=== PATIENT | male | born 1970 | race African-American/Black ===

== ENCOUNTER 2016-10-01 17:15 | Emergency (ER) | payer OTHER ==
[~2016-10-01] VITALS: Ht 175.3 cm; Wt 107.4 kg
[~2016-10-01 17:15] MED LIST: BENZONATATE100 MG PO; BENZONATATE200 MG PO; CARVEDILOL12.5 MG PO; CARVEDILOL25 MG PO; CARVEDILOL6.25 MG PO; COREG25 M1 PO; COUMADIN2.5 MG PO; COUMADIN5 MG PO; FOLIC ACID1 MG PO; FUROSEMIDE20 MG PO; GUAIFENESIN WI120 M1 PO; K-DUR20 MEQ PO; KLOR-CON M1010 MEQ PO; LASIX20 MG PO; LEVAQUIN750 MG PO; LEVOFLOXACIN500 MG PO; LIBRIUM25 MG PO; LISINOPRIL10 MG PO; LISINOPRIL5 MG PO; LOVENOX80 MG/0.8 SC; NAPROSYN500 MG PO; NAPROXEN500 MG PO; NICOTINE PATCH1 EAC1 TD; ONE DAILY TABL1 EAC1 PO; PANTOPRAZOLE SO40 MG PO; PERCOCET 5/31 TABLET PO; POTASSIUM CHLO20 ME1 PO; PREDNISONE20 MG PO; PROAIR HFA8.5 GM IH; PROTONIX40 MG PO; PROVENTIL HFA6.7 GM IH; PROVENTIL,2.5 MG/0.5 AEROSOL; SPIRIVA RESPIMAT4 GM IH; SPIRIVA1 INHALATI IH; TESSALON PERLE100 MG PO; THERAGRAN1 TABLET PO; VENTOLIN HFA18 GM IH; VITAMIN B-1100 MG PO; VITAMIN B-6100 MG PO; ZESTRIL10 MG PO; ZITHROMAX Z-PA250 MG PO; ZOFRAN4 MG PO
[2016-10-01 17:52] LABS: HEMATOCRIT 44.5 % (38.0-50.0); MCH 28.7 PG (29.0-34.0); MCHC 34.8 G/DL (30.0-36.0); MCV 82.4 FL (86-99); MEAN PLAT.VOLUME 10.3 uM^3 (9.0-12.4); PLATELET COUNT 202 K/uL (156-360); RBC DIS.WIDTH-CV 14.2 % (11.8-14.6); RBC DIS.WIDTH-SD 42.3 % (39-53); WHITE BLOOD COUNT 7.5 K/uL (4.1-10.2)
[2016-10-01 18:07] LABS: CHLORIDE 104 mEq/L (99-109); POTASSIUM 3.7 mEq/L (3.7-5.4); SODIUM 139 mEq/L (136-147)
[2016-10-01 18:09] LABS: GLUCOSE 89 mg/dL (70-99)
[2016-10-01 18:10] LABS: ANION GAP 13 MEQ/L (2-14)
[2016-10-01 18:13] LABS: GFR ESTIMATE (CALCULATED) > 59 mL/min/; UREA NITROGEN (BUN) 13 mg/dL (9-23)
[2016-10-01 18:17] LABS: TROP-I INTERPRETATION NEGATIVE; TROPONIN-I 0.01 ng/mL (0.0-0.30)
[2016-10-01 20:21] LABS: TROP-I INTERPRETATION NEGATIVE; TROPONIN-I 0.01 ng/mL (0.0-0.30)
[2016-10-01 20:45] LABS: ADD MIUA? NO; BILIRUBIN NEGATIVE; BLOOD NEGATIVE; COLOR YELLOW ((YELLOW)); GLUCOSE (STRIP) NEGATIVE; KETONES NEGATIVE; LEUKOCYTES NEGATIVE; NITRITE NEGATIVE; PROTEIN (STRIP) NEGATIVE; SPECIFIC GRAVITY 1.023 (1.000-1.030); UCUL ADDED? NO; UROBILINOGEN 0.2 MG/DL (0.2-1.0)
[2016-10-01] MEDS ORDERED: ULTRAM50 MG PO (22:04)
[2016-10-01 22:21] VITALS: BP 148/89
== END 2016-10-01 22:49 | disposition home or self-care (01) ==
LOC: EME → EDBD 17:15 → EME 17:15
PROVIDERS: Emergency Medicine
DX: M79.1 Myalgia (principal); M25.579 Pain in unspecified ankle and joints of unspecified foot; J45.909 Unspecified asthma, uncomplicated; I50.9 Heart failure, unspecified; I25.2 Old myocardial infarction; Z86.718 Personal history of other venous thrombosis and embolism; Z87.891 Personal history of nicotine dependence
CPT/HCPCS: 71020; 80048; 81003; 84484; 85027; 93005; 99281; 99284

== ENCOUNTER 2016-12-22 12:24 | Observation (INO) | payer OTHER ==
[~2016-12-22] VITALS: Ht 175.3 cm; Wt 112.8 kg
[~2016-12-22 12:24] MED LIST changes: +ULTRAM50 MG PO
[2016-12-22 13:28] LABS: HEMATOCRIT 46.7 % (38.0-50.0); MCH 27.1 PG (29.0-34.0); MCHC 33.2 G/DL (30.0-36.0); MCV 81.5 FL (86-99); MEAN PLAT.VOLUME 10.6 uM^3 (9.0-12.4); PLATELET COUNT 266 K/uL (156-360); RBC DIS.WIDTH-CV 14.4 % (11.8-14.6); RBC DIS.WIDTH-SD 42.1 % (39-53); RED BLOOD COUNT 5.73 M/uL (4.00-5.50); WHITE BLOOD COUNT 7.2 K/uL (4.1-10.2)
[2016-12-22 13:36] LABS: CHLORIDE 99 mEq/L (99-109); POTASSIUM 5.2 mEq/L (3.7-5.4); SODIUM 136 mEq/L (136-147)
[2016-12-22 13:37] LABS: GLUCOSE 119 mg/dL (70-99)
[2016-12-22] MEDS ORDERED: XARELTO20 MG PO (13:38)
[2016-12-22] MEDS ORDERED: ALDACTONE25 MG PO (13:38)
[2016-12-22 13:39] LABS: ANION GAP 13 MEQ/L (2-14)
[2016-12-22] MEDS ORDERED: COREG25 M1 PO (13:39)
[2016-12-22 13:41] LABS: GFR ESTIMATE (CALCULATED) > 59 mL/min/
[2016-12-22 13:42] LABS: UREA NITROGEN (BUN) 21 mg/dL (9-23)
[2016-12-22 13:54] LABS: TROP-I INTERPRETATION NEGATIVE; TROPONIN-I 0.02 ng/mL (0.0-0.30)
[2016-12-22] MEDS ORDERED: ROXICODONE5 MG PO (14:54)
[2016-12-22] MEDS ORDERED: DAILY VITE1 EAC1 PO (14:55)
[2016-12-22 16:10] VITALS: BP 106/64
[2016-12-22 18:21] LABS: TROP-I INTERPRETATION NEGATIVE; TROPONIN-I 0.02 ng/mL (0.0-0.30)
[2016-12-22 19:00] VITALS: BP 107/69
[2016-12-22 23:19] VITALS: BP 102/64
[2016-12-23 01:18] LABS: TROP-I INTERPRETATION NEGATIVE; TROPONIN-I < 0.01 ng/mL (0.0-0.30)
[2016-12-23 04:24] VITALS: BP 105/69
[2016-12-23 09:23] VITALS: BP 121/73
[2016-12-23 11:53] VITALS: BP 109/71
[2016-12-23] MEDS ORDERED: ROXICODONE5 MG PO (12:17)
== END 2016-12-23 14:24 | disposition home or self-care (01) ==
LOC: EME 12:24 → EDOF 14:59 → 5WEST 14:59 → EDOF 14:59 → 5WEST 15:54
PROVIDERS: Emergency Medicine; Hospitalist
DX: R07.89 Other chest pain (principal); M25.512 Pain in left shoulder; I11.0 Hypertensive heart disease with heart failure; I50.22 Chronic systolic (congestive) heart failure; I42.9 Cardiomyopathy, unspecified; J45.909 Unspecified asthma, uncomplicated; Z95.810 Presence of automatic (implantable) cardiac defibrillator; Z86.718 Personal history of other venous thrombosis and embolism; Z79.01 Long term (current) use of anticoagulants; J44.9 Chronic obstructive pulmonary disease, unspecified
CPT/HCPCS: 71020; 73030; 80048; 83880; 84484; 85027; 93005; 93880; 99202; 99281; 99285; G0378; J1885; J2270

== ENCOUNTER 2017-03-27 03:41 | Observation (INO) | payer OTHER ==
[~2017-03-27] VITALS: Ht 175.3 cm; Wt 114.4 kg
[2017-03-27] VITALS (7 sets, daily range): BP systolic 119–158; BP diastolic 62–93
[~2017-03-27 03:41] MED LIST changes: +ALDACTONE25 MG PO; +DAILY VITE1 EAC1 PO; +ROXICODONE5 MG PO; +XARELTO20 MG PO
[2017-03-27 04:13] LABS: HEMATOCRIT 43.6 % (38.0-50.0); MCH 27.9 PG (29.0-34.0); MCHC 33.9 G/DL (30.0-36.0); MCV 82.1 FL (86-99); MEAN PLAT.VOLUME 9.9 uM^3 (9.0-12.4); PLATELET COUNT 231 K/uL (156-360); RBC DIS.WIDTH-CV 14.3 % (11.8-14.6); RBC DIS.WIDTH-SD 42.7 % (39-53); RED BLOOD COUNT 5.31 M/uL (4.00-5.50); WHITE BLOOD COUNT 7.2 K/uL (4.1-10.2)
[2017-03-27 04:26] LABS: CHLORIDE 104 mEq/L (99-109); POTASSIUM 4.1 mEq/L (3.7-5.4); SODIUM 140 mEq/L (136-147)
[2017-03-27 04:28] LABS: D-DIMER ELISA 0.48 mg/L FEU (< 0.57); GLUCOSE 254 mg/dL (70-99)
[2017-03-27 04:29] LABS: ANION GAP 15 MEQ/L (2-14)
[2017-03-27 04:32] LABS: GFR ESTIMATE (CALCULATED) > 59 mL/min/
[2017-03-27 04:33] LABS: UREA NITROGEN (BUN) 12 mg/dL (9-23)
[2017-03-27 04:36] LABS: TROP-I INTERPRETATION NEGATIVE; TROPONIN-I 0.01 ng/mL (0.0-0.30)
[2017-03-27 05:08] LABS: SERUM ETHYL ALCOHOL 40 mg/dL
[2017-03-27] MEDS ORDERED: COREG12.5 M1 PO (09:38)
[2017-03-27] MEDS ORDERED: ZESTRIL20 MG PO (09:38)
[2017-03-27] MEDS ORDERED: LASIX40 MG PO (09:39)
[2017-03-27] MEDS ORDERED: LIPITOR80 MG PO (09:40)
[2017-03-27 16:12] LABS: TROP-I INTERPRETATION NEGATIVE; TROPONIN-I 0.01 ng/mL (0.0-0.30)
[2017-03-27 18:06] LABS: ADD MIUA? NO; BILIRUBIN NEGATIVE; BLOOD NEGATIVE; COLOR STRAW ((YELLOW)); GLUCOSE (STRIP) >=500; KETONES NEGATIVE; LEUKOCYTES NEGATIVE; NITRITE NEGATIVE; PROTEIN (STRIP) NEGATIVE; SPECIFIC GRAVITY 1.024 (1.000-1.030); UCUL ADDED? NO; UROBILINOGEN 0.2 MG/DL (0.2-1.0)
[2017-03-27 18:20] LABS: ADD MEDTOX COMMENT Y; AMPHETAMINE NEGATIVE (500 ng/mL); BARBITURATES NEGATIVE (200 ng/mL); BENZODIAZEPINES NEGATIVE (150 ng/mL); COCAINE NEGATIVE (150 ng/mL); INTERNAL CONTROLS VALID? YES; METHADONE NEGATIVE (200 ng/mL); METHAMPHETAMINE NEGATIVE (500 ng/mL); OPIATES (MORPHINE) PRESUMPTIVE POSITIVE (100 ng/mL); OXYCODONE NEGATIVE (100 ng/mL); PHENCYCLIDINE NEGATIVE (25 ng/mL); PROPOXYPHENE NEGATIVE (300 ng/mL); THC CANNABINOIDS NEGATIVE (50 ng/mL); TRICYCLIC ANTIDEPRESSANTS NEGATIVE (300 ng/mL)
[2017-03-28] VITALS: BP 132/86
[2017-03-28 03:56] VITALS: BP 141/93
[2017-03-28] MEDS ORDERED: AZITHROMYCIN500 M1 PO (09:02)
[2017-03-28 09:15] VITALS: BP 127/82
== END 2017-03-28 11:07 | disposition home or self-care (01) ==
LOC: EME → EDBD 03:41 → EDOF 04:57 → 5WEST 06:01
PROVIDERS: Emergency Medicine; Physician Assistant Medical
DX: J44.0 Chronic obstructive pulmonary disease with (acute) lower respiratory infection (principal); J20.9 Acute bronchitis, unspecified; R00.0 Tachycardia, unspecified; I42.0 Dilated cardiomyopathy; R07.89 Other chest pain; F10.20 Alcohol dependence, uncomplicated; Z95.810 Presence of automatic (implantable) cardiac defibrillator; I12.9 Hypertensive chronic kidney disease with stage 1 through stage 4 chronic kidney disease, or unspecified chronic kidney disease; N18.3 Chronic kidney disease, stage 3 (moderate); I25.2 Old myocardial infarction; E66.9 Obesity, unspecified; Z68.37 Body mass index [BMI] 37.0-37.9, adult; F17.210 Nicotine dependence, cigarettes, uncomplicated; Z98.890 Other specified postprocedural states; Z91.010 Allergy to peanuts; Z88.5 Allergy status to narcotic agent; Z88.6 Allergy status to analgesic agent; Z79.01 Long term (current) use of anticoagulants
CPT/HCPCS: 71020; 71275; 80048; 81003; 83880; 84443; 84484; 84999; 85027; 85379; 93005; 94640; 94640 76; 94760; 99202; 99281; 99285; G0378; G0480; J1650; J2270; J2405; J7030; J7512

== ENCOUNTER 2017-04-28 21:07 | Inpatient (IN) | payer OTHER ==
[~2017-04-28] VITALS: Ht 175.3 cm; Wt 72.2 kg
[~2017-04-28 21:07] MED LIST changes: +AZITHROMYCIN500 M1 PO; +COREG12.5 M1 PO; +LASIX40 MG PO; +LIPITOR80 MG PO; +ZESTRIL20 MG PO
[2017-04-28 21:35] LABS: HEMATOCRIT 43.3 % (38.0-50.0); MCH 27.6 PG (29.0-34.0); MCHC 34.4 G/DL (30.0-36.0); MCV 80.2 FL (86-99); MEAN PLAT.VOLUME 11.8 uM^3 (9.0-12.4); PLATELET COUNT 217 K/uL (156-360); RBC DIS.WIDTH-SD 37.2 % (39-53); WHITE BLOOD COUNT 7.5 K/uL (4.1-10.2)
[2017-04-28 21:50] LABS: CHLORIDE 89 mEq/L (99-109); POTASSIUM 4.8 mEq/L (3.7-5.4); SODIUM 122 mEq/L (136-147)
[2017-04-28 21:54] LABS: ANION GAP 15 MEQ/L (2-14)
[2017-04-28 21:56] LABS: GFR ESTIMATE (CALCULATED) 53 mL/min/
[2017-04-28 21:57] LABS: UREA NITROGEN (BUN) 21 mg/dL (9-23)
[2017-04-28 22:00] LABS: GLUCOSE 754 mg/dL (70-99)
[2017-04-28 22:28] LABS: ADD MIUA? NO; BILIRUBIN NEGATIVE; BLOOD NEGATIVE; COLOR STRAW ((YELLOW)); GLUCOSE (STRIP) >=500; KETONES 20; LEUKOCYTES NEGATIVE; NITRITE NEGATIVE; PROTEIN (STRIP) NEGATIVE; UCUL ADDED? NO; UROBILINOGEN 0.2 MG/DL (0.2-1.0)
[2017-04-28 22:49] LABS: BASE EXCESS -4.9 mEq/L (-3 to +3); BICARBONATE 19.8 mEq/L (22-26); METHEMOGLOBIN 0.8 % (0-1.5); PCO2 35 mm Hg (35-45); PO2 71 mm Hg (80-100); pH 7.36 (7.35-7.45)
[2017-04-28 22:50] LABS: COMMENTS - BLOOD GASES A+C+; FI02 21 %; SITE RR
[2017-04-28 23:09] LABS: DIRECT BILIRUBIN 0.1 mg/dL (0.0-0.3); MAGNESIUM 2.2 mg/dl (1.3-2.7); SAMPLE HEMOLYSIS CHECK 1; SAMPLE ICTERIC CHECK 0; SAMPLE LIPEMIA CHECK 1; TOTAL BILIRUBIN 0.5 MG/DL (0.0-1.0)
[2017-04-28 23:23] LABS: ALKALINE PHOSPHATASE 101 IU/L (3-129); LIPASE 63 U/L (1.0-51.0)
[2017-04-29 00:55] LABS: POTASSIUM ND MEQ/L (3.7-5.4)
[2017-04-29 01:00] LABS: CHLORIDE 96 mEq/L (99-109); SODIUM 126 mEq/L (136-147)
[2017-04-29 01:03] LABS: ANION GAP 12 MEQ/L (2-14)
[2017-04-29 01:06] LABS: GFR ESTIMATE (CALCULATED) > 59 mL/min/
[2017-04-29 01:07] LABS: UREA NITROGEN (BUN) 19 mg/dL (9-23)
[2017-04-29 01:12] LABS: GLUCOSE 564 mg/dL (70-99)
[2017-04-29 01:42] LABS: POTASSIUM 4.3 mEq/L (3.7-5.4)
[2017-04-29 04:38] LABS: CHLORIDE 99 mEq/L (99-109); POTASSIUM 4.3 mEq/L (3.7-5.4); SODIUM 130 mEq/L (136-147)
[2017-04-29 04:40] LABS: GLUCOSE 396 mg/dL (70-99)
[2017-04-29 04:42] LABS: ANION GAP 13 MEQ/L (2-14)
[2017-04-29 04:44] LABS: GFR ESTIMATE (CALCULATED) > 59 mL/min/
[2017-04-29 04:45] LABS: UREA NITROGEN (BUN) 16 mg/dL (9-23)
[2017-04-29 06:24] VITALS: BP 135/78
[2017-04-29 06:57] LABS: Estimated Average Glucose 381 mg/dL (70-123); HEMOGLOBIN A1c (GLYCOHEMOGLOB) 14.9 % HGB (Below 5.7)
[2017-04-29 07:52] VITALS: BP 117/59
[2017-04-29 10:07] LABS: ANION GAP 10 MEQ/L (2-14); CHLORIDE 95 MEQ/L (99-109); MAGNESIUM 1.9 mg/dl (1.3-2.7); POTASSIUM 4.1 MEQ/L (3.7-5.4); SAMPLE HEMOLYSIS CHECK 0; SAMPLE ICTERIC CHECK 0; SAMPLE LIPEMIA CHECK 0; SODIUM 129 MEQ/L (136-147)
[2017-04-29 10:20] LABS: GFR ESTIMATE (CALCULATED) > 59 mL/min/; LIPASE 57 U/L (1.0-51.0); UREA NITROGEN (BUN) 15 mg/dL (9-23)
[2017-04-29 10:25] LABS: GLUCOSE 517 mg/dL (70-99)
[2017-04-29 10:27] LABS: TROP-I INTERPRETATION NEGATIVE; TROPONIN-I < 0.01 ng/mL (0.0-0.30)
[2017-04-29 12:36] LABS: ANION GAP 9 MEQ/L (2-14); CHLORIDE 100 MEQ/L (99-109); MAGNESIUM 1.9 mg/dl (1.3-2.7); POTASSIUM 4.1 MEQ/L (3.7-5.4); SAMPLE HEMOLYSIS CHECK 0; SAMPLE ICTERIC CHECK 0; SAMPLE LIPEMIA CHECK 0; SODIUM 131 MEQ/L (136-147)
[2017-04-29 12:41] LABS: GFR ESTIMATE (CALCULATED) > 59 mL/min/; GLUCOSE 369 mg/dL (70-99); UREA NITROGEN (BUN) 14 mg/dL (9-23)
[2017-04-29 15:30] VITALS: BP 95/58
[2017-04-29 15:33] VITALS: BP 149/88
[2017-04-29 16:33] LABS: ANION GAP 7 MEQ/L (2-14); CHLORIDE 99 MEQ/L (99-109); GFR ESTIMATE (CALCULATED) > 59 mL/min/; GLUCOSE 337 mg/dL (70-99); MAGNESIUM 1.9 mg/dl (1.3-2.7); POTASSIUM 3.9 MEQ/L (3.7-5.4); SAMPLE HEMOLYSIS CHECK 0; SAMPLE ICTERIC CHECK 0; SAMPLE LIPEMIA CHECK 0; SODIUM 128 MEQ/L (136-147); UREA NITROGEN (BUN) 13 mg/dL (9-23)
[2017-04-29 16:36] LABS: TROP-I INTERPRETATION NEGATIVE; TROPONIN-I 0.02 ng/mL (0.0-0.30)
[2017-04-29 21:19] LABS: TROP-I INTERPRETATION NEGATIVE; TROPONIN-I 0.01 ng/mL (0.0-0.30)
[2017-04-29 21:41] LABS: ANION GAP 10 MEQ/L (2-14); CHLORIDE 101 MEQ/L (99-109); MAGNESIUM 1.8 mg/dl (1.3-2.7); SAMPLE HEMOLYSIS CHECK 0; SAMPLE ICTERIC CHECK 0; SAMPLE LIPEMIA CHECK 0; SODIUM 131 MEQ/L (136-147)
[2017-04-29 22:02] LABS: GFR ESTIMATE (CALCULATED) > 59 mL/min/; UREA NITROGEN (BUN) 13 mg/dL (9-23)
[2017-04-29 22:03] LABS: GLUCOSE 399 mg/dL (70-99)
[2017-04-29 23:58] VITALS: BP 106/59
[2017-04-30 02:19] LABS: POINT-OF-CARE METER ID UU13113725
[2017-04-30 04:00] LABS: POINT-OF-CARE METER ID UU13113725
[2017-04-30 06:28] LABS: POINT-OF-CARE METER ID UU13113725
[2017-04-30 06:29] LABS: EOSINOPHIL (%) 1.5 % (0-5); EOSINOPHIL COUNT 0.1 K/uL (0-0.3); HEMATOCRIT 39.1 % (38.0-50.0); IMMATURE GRANULOCYTE (%) 0.4 % (0.0-0.7); INSTRUMENT ABS NEUTROPHIL CT 2.4 K/uL; MCH 27.8 PG (29.0-34.0); MCHC 34.3 G/DL (30.0-36.0); MCV 81.1 FL (86-99); MEAN PLAT.VOLUME 11.4 uM^3 (9.0-12.4); MONOCYTE (%) 6.3 % (3-12); MONOCYTE COUNT 0.3 K/uL (0-0.8); NEUTROPHIL COUNT 2.4 K/uL (1.8-6.4); PLATELET COUNT 156 K/uL (156-360); RBC DIS.WIDTH-CV 13.1 % (11.8-14.6); RBC DIS.WIDTH-SD 38.2 % (39-53); RED BLOOD COUNT 4.82 M/uL (4.00-5.50); WHITE BLOOD COUNT 4.7 K/uL (4.1-10.2)
[2017-04-30 07:12] LABS: ANION GAP 11 MEQ/L (2-14); CHLORIDE 103 MEQ/L (99-109); GFR ESTIMATE (CALCULATED) > 59 mL/min/; GLUCOSE 209 mg/dL (70-99); POTASSIUM 3.7 MEQ/L (3.7-5.4); SAMPLE HEMOLYSIS CHECK 0; SAMPLE ICTERIC CHECK 0; SAMPLE LIPEMIA CHECK 0; SODIUM 135 MEQ/L (136-147); TOTAL BILIRUBIN 0.6 MG/DL (0.0-1.0); UREA NITROGEN (BUN) 10 mg/dL (9-23)
[2017-04-30 07:16] LABS: ALKALINE PHOSPHATASE 64 IU/L (3-129)
[2017-04-30 08:07] VITALS: BP 115/59
[2017-04-30 11:56] VITALS: BP 120/70
[2017-04-30 14:06] LABS: POINT-OF-CARE METER ID UU13113725
[2017-04-30 14:06] LABS: POINT-OF-CARE METER ID UU13113702
[2017-04-30 14:06] LABS: POINT-OF-CARE METER ID UU13113702
[2017-04-30 14:06] LABS: POINT-OF-CARE METER ID UU13113702
[2017-04-30 14:20] LABS: POINT-OF-CARE METER ID UU13113702
[2017-04-30 15:08] LABS: POINT-OF-CARE METER ID UU13113725
[2017-04-30 15:51] VITALS: BP 137/96
[2017-05-01 00:02] VITALS: BP 123/75
[2017-05-01 00:27] LABS: POINT-OF-CARE METER ID UU13113725
[2017-05-01 06:32] LABS: EOSINOPHIL (%) 1.6 % (0-5); EOSINOPHIL COUNT 0.1 K/uL (0-0.3); HEMATOCRIT 38.8 % (38.0-50.0); IMMATURE GRANULOCYTE (%) 0.5 % (0.0-0.7); INSTRUMENT ABS NEUTROPHIL CT 2.2 K/uL; LYMPHOCYTE COUNT 1.7 K/uL (1.0-2.8); MCH 27.5 PG (29.0-34.0); MCV 80.8 FL (86-99); MEAN PLAT.VOLUME 11.6 uM^3 (9.0-12.4); MONOCYTE (%) 5.9 % (3-12); MONOCYTE COUNT 0.3 K/uL (0-0.8); NEUTROPHIL (%) 50.9 % (45-76); NEUTROPHIL COUNT 2.2 K/uL (1.8-6.4); NRBC (%) 0.7 /100 WBC (0-0); PLATELET COUNT 169 K/uL (156-360); RBC DIS.WIDTH-CV 13.1 % (11.8-14.6); RBC DIS.WIDTH-SD 38.5 % (39-53); WHITE BLOOD COUNT 4.3 K/uL (4.1-10.2)
[2017-05-01 06:58] LABS: ALKALINE PHOSPHATASE 64 IU/L (3-129); ANION GAP 6 MEQ/L (2-14); CHLORIDE 103 MEQ/L (99-109); GFR ESTIMATE (CALCULATED) > 59 mL/min/; GLUCOSE 249 mg/dL (70-99); SAMPLE HEMOLYSIS CHECK 0; SAMPLE ICTERIC CHECK 0; SAMPLE LIPEMIA CHECK 0; SODIUM 133 MEQ/L (136-147); TOTAL BILIRUBIN 0.5 MG/DL (0.0-1.0); UREA NITROGEN (BUN) 7 mg/dL (9-23)
[2017-05-01 07:51] VITALS: BP 158/97
[2017-05-01 11:20] LABS: POINT-OF-CARE METER ID UU13113725
[2017-05-01 11:59] VITALS: BP 138/72
[2017-05-01 16:19] VITALS: BP 119/74
[2017-05-01 21:09] LABS: POINT-OF-CARE METER ID UU13113725
[2017-05-01 22:37] VITALS: BP 123/68
[2017-05-02 06:24] LABS: EOSINOPHIL (%) 1.4 % (0-5); EOSINOPHIL COUNT 0.1 K/uL (0-0.3); IMMATURE GRANULOCYTE (%) 0.5 % (0.0-0.7); INSTRUMENT ABS NEUTROPHIL CT 2.2 K/uL; LYMPHOCYTE COUNT 1.8 K/uL (1.0-2.8); MCH 28.3 PG (29.0-34.0); MCHC 34.5 G/DL (30.0-36.0); MCV 82.1 FL (86-99); MEAN PLAT.VOLUME 11.4 uM^3 (9.0-12.4); MONOCYTE (%) 7.6 % (3-12); MONOCYTE COUNT 0.3 K/uL (0-0.8); NEUTROPHIL (%) 49.6 % (45-76); NEUTROPHIL COUNT 2.2 K/uL (1.8-6.4); PLATELET COUNT 149 K/uL (156-360); RBC DIS.WIDTH-CV 13.3 % (11.8-14.6); RBC DIS.WIDTH-SD 39.7 % (39-53); RED BLOOD COUNT 4.63 M/uL (4.00-5.50); WHITE BLOOD COUNT 4.4 K/uL (4.1-10.2)
[2017-05-02 06:55] LABS: ANION GAP 7 MEQ/L (2-14); CHLORIDE 107 MEQ/L (99-109); GFR ESTIMATE (CALCULATED) > 59 mL/min/; GLUCOSE 202 mg/dL (70-99); POTASSIUM 3.9 MEQ/L (3.7-5.4); SAMPLE HEMOLYSIS CHECK 0; SAMPLE ICTERIC CHECK 0; SAMPLE LIPEMIA CHECK 0; SODIUM 136 MEQ/L (136-147); UREA NITROGEN (BUN) 7 mg/dL (9-23)
[2017-05-02 07:15] VITALS: BP 126/71
[2017-05-02] MEDS ORDERED: FOLIC ACID1 MG PO (08:55)
[2017-05-02] MEDS ORDERED: ADVAIR HFA120 INHALA IH (08:55)
[2017-05-02] MEDS ORDERED: SPIRIVA RESPIMAT4 GM IH (08:55)
[2017-05-02] MEDS ORDERED: NOVOLOG PE100 UNITS/ SC (08:55)
[2017-05-02] MEDS ORDERED: Thiamine,Vitamin B1 PO (08:55)
[2017-05-02] MEDS ORDERED: LEVEMIR100 UNIT/2 SC (08:55)
[2017-05-02] MEDS ORDERED: MAG-AL PLUS SUS30 ML PO (08:59)
== END 2017-05-02 13:06 | disposition home or self-care (01) | DRG 638 ==
LOC: EME 21:07 → 5EAST 04-29 03:22 → EDOF 04-29 03:22 → ENRESERV 04-29 03:23 → 5EAST 04-29 05:30
PROVIDERS: Emergency Medicine; Hospitalist; Physician Assistant
DX: E13.10 Other specified diabetes mellitus with ketoacidosis without coma (principal); N17.9 Acute kidney failure, unspecified; I13.0 Hypertensive heart and chronic kidney disease with heart failure and stage 1 through stage 4 chronic kidney disease, or unspecified chronic kidney disease; I42.6 Alcoholic cardiomyopathy; I95.9 Hypotension, unspecified; N18.3 Chronic kidney disease, stage 3 (moderate); I50.22 Chronic systolic (congestive) heart failure; Z86.74 Personal history of sudden cardiac arrest; E87.1 Hypo-osmolality and hyponatremia; R07.89 Other chest pain; E78.5 Hyperlipidemia, unspecified; E03.9 Hypothyroidism, unspecified; J44.9 Chronic obstructive pulmonary disease, unspecified; F10.21 Alcohol dependence, in remission; R74.8 Abnormal levels of other serum enzymes; K76.0 Fatty (change of) liver, not elsewhere classified; E66.9 Obesity, unspecified; Z68.35 Body mass index [BMI] 35.0-35.9, adult; Z79.899 Other long term (current) drug therapy; Z87.891 Personal history of nicotine dependence; Z80.0 Family history of malignant neoplasm of digestive organs; Z95.810 Presence of automatic (implantable) cardiac defibrillator; E86.0 Dehydration; K52.9 Noninfective gastroenteritis and colitis, unspecified; E11.22 Type 2 diabetes mellitus with diabetic chronic kidney disease; I25.2 Old myocardial infarction
CPT/HCPCS: 36600; 71020; 74176; 80048; 80048 91; 80053; 80076; 81003; 82010; 82803; 82948; 83036; 83690; 83735; 83880; 84100; 84484; 84999; 85025; 85027; 85379; 93005; 94640; 94640 76; 94760; 99202; 99281; 99285; J1650; J1815; J2270; J2765; J7030; J7050; J7120

== ENCOUNTER 2017-09-02 13:52 | Observation (INO) | payer OTHER ==
[~2017-09-02] VITALS: Ht 175.3 cm; Wt 102.7 kg
[~2017-09-02 13:52] MED LIST changes: +ADVAIR HFA120 INHALA IH; +LEVEMIR100 UNIT/2 SC; +MAG-AL PLUS SUS30 ML PO; +NOVOLOG PE100 UNITS/ SC; +Thiamine,Vitamin B1 PO
[2017-09-02 14:40] LABS: HEMATOCRIT 44.5 % (38.0-50.0); MCH 28.9 PG (29.0-34.0); MCHC 35.7 G/DL (30.0-36.0); MCV 80.8 FL (86-99); MEAN PLAT.VOLUME 10.7 uM^3 (9.0-12.4); PLATELET COUNT 223 K/uL (156-360); RBC DIS.WIDTH-CV 13.2 % (11.8-14.6); RBC DIS.WIDTH-SD 38.4 % (39-53); RED BLOOD COUNT 5.51 M/uL (4.00-5.50)
[2017-09-02 14:44] LABS: ADD MIUA? YES; BILIRUBIN NEGATIVE; BLOOD SMALL; COLOR STRAW ((YELLOW)); GLUCOSE (STRIP) >=500; KETONES 5; LEUKOCYTES NEGATIVE; NITRITE NEGATIVE; PROTEIN (STRIP) NEGATIVE; SPECIFIC GRAVITY 1.027 (1.000-1.030); UROBILINOGEN 0.2 MG/DL (0.2-1.0)
[2017-09-02 14:47] LABS: BACTERIA NONE SEEN /HPF; EPITHELIAL CELLS NONE SEEN /HPF; MUCUS NONE SEEN /LPF; RED BLOOD CELLS 0-5 /HPF (0-5); UCUL ADDED? NO; WHITE BLOOD CELLS NONE SEEN /HPF (0-5)
[2017-09-02 14:56] LABS: CHLORIDE 86 mEq/L (99-109); POTASSIUM 4.7 mEq/L (3.7-5.4); SODIUM 120 mEq/L (136-147)
[2017-09-02 14:57] LABS: MAGNESIUM 2.3 mg/dL (1.3-2.7)
[2017-09-02 15:00] LABS: ANION GAP 16 MEQ/L (2-14); TOTAL BILIRUBIN 0.6 mg/dL (0.0-1.0)
[2017-09-02 15:01] LABS: SERUM ETHYL ALCOHOL < 10 mg/dL
[2017-09-02 15:02] LABS: ALKALINE PHOSPHATASE 142 IU/L (3-129); GFR ESTIMATE (CALCULATED) > 59 mL/min/ (58.99-99999)
[2017-09-02 15:03] LABS: TROP-I INTERPRETATION NEGATIVE; TROPONIN-I < 0.01 ng/mL (0.0-0.30); UREA NITROGEN (BUN) 16 mg/dL (9-23)
[2017-09-02 15:04] LABS: GLUCOSE 860 mg/dL (70-99)
[2017-09-02 15:33] LABS: ABS NEUTROPHIL COUNT 3.3; ANISOCYTOSIS 1+; ATYPICAL LYMPHOCYTE 16.5 %; EOSINOPHIL ABS CT 0.2; EOSINOPHILS 2.9 % (0-5.0); INSTRUMENT ABS NEUTROPHIL CT 2.5 K/uL; LYMPHOCYTES 16.5 % (15.0-45.0); MICROCYTOSIS 1+; PLAT.SUFFICIENCY ADEQUATE; POIKILOCYTOSIS 2+; SEG.NEUTROPHILS 55.3 % (46.0-76.0); SMUDGE CELLS 22.3; SPHEROCYTES 2+
[2017-09-02] MEDS ORDERED: TUMS500 MG PO (17:51)
[2017-09-02 20:42] LABS: TROP-I INTERPRETATION NEGATIVE; TROPONIN-I < 0.01 ng/mL (0.0-0.30)
[2017-09-02 20:44] VITALS: BP 142/101
[2017-09-02 20:49] LABS: Estimated Average Glucose 404 mg/dL (70-123)
[2017-09-02 21:15] LABS: HEMOGLOBIN A1c (GLYCOHEMOGLOB) 15.7 % HGB (Below 5.7)
[2017-09-03 02:12] LABS: TROP-I INTERPRETATION NEGATIVE; TROPONIN-I < 0.01 ng/mL (0.0-0.30)
[2017-09-03 04:02] VITALS: BP 131/77
[2017-09-03 04:14] LABS: POINT-OF-CARE METER ID UU14302475
[2017-09-03 05:22] LABS: HEMATOCRIT 41.5 % (38.0-50.0); MCH 27.3 PG (29.0-34.0); MCHC 33.7 G/DL (30.0-36.0); MCV 80.9 FL (86-99); MEAN PLAT.VOLUME 10.1 uM^3 (9.0-12.4); PLATELET COUNT 187 K/uL (156-360); RBC DIS.WIDTH-CV 13.2 % (11.8-14.6); RBC DIS.WIDTH-SD 38.4 % (39-53); RED BLOOD COUNT 5.13 M/uL (4.00-5.50); WHITE BLOOD COUNT 5.7 K/uL (4.1-10.2)
[2017-09-03 05:44] LABS: ALKALINE PHOSPHATASE 94 IU/L (3-129); ANION GAP 10 MEQ/L (2-14); CHLORIDE 96 MEQ/L (99-109); POTASSIUM 4.2 MEQ/L (3.7-5.4); SAMPLE HEMOLYSIS CHECK 0; SAMPLE ICTERIC CHECK 0; SAMPLE LIPEMIA CHECK 0; TOTAL BILIRUBIN 0.4 MG/DL (0.0-1.0); UREA NITROGEN (BUN) 12 mg/dL (9-23)
[2017-09-03 05:45] LABS: GFR ESTIMATE (CALCULATED) > 59 mL/min/ (58.99-99999); GLUCOSE 305 mg/dL (70-99); SODIUM 129 MEQ/L (136-147)
[2017-09-03 08:04] LABS: POINT-OF-CARE METER ID UU13113831
[2017-09-03 08:19] VITALS: BP 129/82
[2017-09-03 11:19] VITALS: BP 114/60
[2017-09-03 12:23] LABS: POINT-OF-CARE METER ID UU14302475
[2017-09-03 16:02] VITALS: BP 128/84
[2017-09-03 16:41] LABS: POINT-OF-CARE METER ID UU14162513
[2017-09-03 18:02] LABS: POINT-OF-CARE METER ID UU14302475
[2017-09-03 22:19] VITALS: BP 114/71
[2017-09-03 23:48] VITALS: BP 108/63
[2017-09-04 03:12] LABS: POINT-OF-CARE METER ID UU14302475
[2017-09-04 04:54] VITALS: BP 128/78
[2017-09-04 05:25] LABS: HEMATOCRIT 42.3 % (38.0-50.0); MCH 27.7 PG (29.0-34.0); MCHC 33.6 G/DL (30.0-36.0); MCV 82.5 FL (86-99); MEAN PLAT.VOLUME 10.5 uM^3 (9.0-12.4); PLATELET COUNT 156 K/uL (156-360); RBC DIS.WIDTH-CV 13.2 % (11.8-14.6); RED BLOOD COUNT 5.13 M/uL (4.00-5.50); WHITE BLOOD COUNT 5.3 K/uL (4.1-10.2)
[2017-09-04 06:12] LABS: ANION GAP 12 MEQ/L (2-14); CHLORIDE 99 MEQ/L (99-109); GFR ESTIMATE (CALCULATED) > 59 mL/min/ (58.99-99999); GLUCOSE 295 mg/dL (70-99); POTASSIUM 4.1 MEQ/L (3.7-5.4); SAMPLE HEMOLYSIS CHECK 0; SAMPLE ICTERIC CHECK 0; SAMPLE LIPEMIA CHECK 0; SODIUM 131 MEQ/L (136-147); UREA NITROGEN (BUN) 12 mg/dL (9-23)
[2017-09-04 06:38] LABS: EOSINOPHIL (%) 1.7 % (0-5); EOSINOPHIL COUNT 0.1 K/uL (0-0.3); IMMATURE GRANULOCYTE (%) 0.2 % (0.0-0.7); INSTRUMENT ABS NEUTROPHIL CT 2.3 K/uL; LYMPHOCYTE COUNT 2.5 K/uL (1.0-2.8); MONOCYTE (%) 8.3 % (3-12); MONOCYTE COUNT 0.4 K/uL (0-0.8); NEUTROPHIL (%) 42.5 % (45-76); NEUTROPHIL COUNT 2.3 K/uL (1.8-6.4)
[2017-09-04 07:53] LABS: POINT-OF-CARE METER ID UU14162513
[2017-09-04 08:28] VITALS: BP 114/68
[2017-09-04] MEDS ORDERED: LISINOPRIL10 MG PO (08:39)
[2017-09-04] MEDS ORDERED: LEVEMIR100 UNIT/2 SC (08:40)
[2017-09-07 12:16] LABS: POINT-OF-CARE METER ID UU14302475
[2017-09-07 12:25] LABS: POINT-OF-CARE METER ID UU13113778
[2017-09-07 12:25] LABS: POINT-OF-CARE METER ID UU13113747
[2017-09-07 12:25] LABS: POINT-OF-CARE METER ID UU13113747
[2017-09-07 12:25] LABS: POINT-OF-CARE METER ID UU13113747
[2017-09-07 12:25] LABS: POINT-OF-CARE METER ID UU13113747
[2017-09-07 12:25] LABS: POINT-OF-CARE METER ID UU14302475
== END 2017-09-04 10:52 | disposition home or self-care (01) ==
LOC: EME 13:52 → EDOF 19:05 → 5WEST 19:05 → ENRESERV 19:07 → 5WEST 20:40 → ENPENDDIS 09-04 08:45 → 5WEST 09-04 10:52
PROVIDERS: Emergency Medicine; Internal Medicine
DX: E11.65 Type 2 diabetes mellitus with hyperglycemia (principal); N17.9 Acute kidney failure, unspecified; E87.1 Hypo-osmolality and hyponatremia; Z91.19 Patient's noncompliance with other medical treatment and regimen; J44.9 Chronic obstructive pulmonary disease, unspecified; I42.0 Dilated cardiomyopathy; R53.81 Other malaise; R50.9 Fever, unspecified; Z79.4 Long term (current) use of insulin; Z86.74 Personal history of sudden cardiac arrest; Z95.810 Presence of automatic (implantable) cardiac defibrillator; Z87.891 Personal history of nicotine dependence; F10.11 Alcohol abuse, in remission; Z86.718 Personal history of other venous thrombosis and embolism; N18.3 Chronic kidney disease, stage 3 (moderate); E78.5 Hyperlipidemia, unspecified; Z80.0 Family history of malignant neoplasm of digestive organs
CPT/HCPCS: 71010; 80048; 80053; 81003; 82010; 82948; 83036; 83605; 83735; 84484; 85025; 85027; 87502; 87651 90; 93005; 94640; 94640 76; 99202; 99281; 99285; G0378; G0480; J1644; J1815; J2405; J7030

== ENCOUNTER 2018-02-08 21:07 | Emergency (ER) | payer OTHER ==
[~2018-02-08] VITALS: Ht 175.3 cm; Wt 110.1 kg
[~2018-02-08 21:07] MED LIST changes: +TUMS500 MG PO
[2018-02-08 22:00] LABS: CARBON DIOXIDE (BICARBONATE) 21.8 MEQ/L (20-31)
[2018-02-08 22:10] LABS: INTER. NORMALIZED RATIO 1.1
[2018-02-08 22:13] LABS: PTT 23.1 SEC (25-37)
[2018-02-08 22:14] LABS: HEMOGLOBIN 16.4 G/DL (12.5-16.6); MCH 28.7 PG (29.0-34.0); MCHC 36.4 G/DL (30.0-36.0); MCV 78.7 FL (86-99); RBC DIS.WIDTH-CV 13.6 % (11.8-14.6); RBC DIS.WIDTH-SD 38.5 % (39-53); RED BLOOD COUNT 5.72 M/uL (4.00-5.50)
[2018-02-08 22:29] LABS: PLAT.SUFFICIENCY ADEQUATE; PLATELET COUNT 214 K/uL (156-360)
[2018-02-08 22:42] LABS: CHLORIDE 94 MEQ/L (99-109); CREATININE 1.2 MG/DL (0.6-1.3); GFR ESTIMATE (CALCULATED) > 59 mL/min/ (58.99-99999); POTASSIUM 3.7 MEQ/L (3.7-5.4); SODIUM 128 MEQ/L (136-147); UREA NITROGEN (BUN) 20 mg/dL (9-23)
[2018-02-08 22:43] LABS: GLUCOSE 507 mg/dL (70-99)
[2018-02-08 22:53] LABS: TROP-I INTERPRETATION NEGATIVE; TROPONIN-I < 0.01 ng/mL (0.0-0.30)
[2018-02-09 03:03] LABS: TROP-I INTERPRETATION NEGATIVE; TROPONIN-I < 0.01 ng/mL (0.0-0.30)
[2018-02-09 03:44] VITALS: BP 136/88
== END 2018-02-09 03:47 | disposition home or self-care (01) ==
LOC: EME 21:07
PROVIDERS: Emergency Medicine
DX: R07.89 Other chest pain (principal); J44.9 Chronic obstructive pulmonary disease, unspecified; I11.0 Hypertensive heart disease with heart failure; I50.9 Heart failure, unspecified; E11.9 Type 2 diabetes mellitus without complications; F41.9 Anxiety disorder, unspecified; I25.2 Old myocardial infarction; Z95.810 Presence of automatic (implantable) cardiac defibrillator; Z86.718 Personal history of other venous thrombosis and embolism; Z87.891 Personal history of nicotine dependence; Z88.6 Allergy status to analgesic agent; Z88.5 Allergy status to narcotic agent
CPT/HCPCS: 71046; 71275; 74177; 80048; 82010; 82803; 82948; 83880; 84484; 85027; 85610; 85730; 93005; 99281; 99284; J1885; J7030